=== PATIENT | male | born 1940 | race African-American/Black ===

== ENCOUNTER 2022-11-18 14:24 | Emergency (ER) | payer OTHER, MEDICAID | END 2022-11-18 17:00 | disposition home or self-care (01) | LOC: CSHERS 14:24 | DX: R60.0 Localized edema (principal); I12.9 Hypertensive chronic kidney disease with stage 1 through stage 4 chronic kidney disease, or unspecified chronic kidney disease; N18.9 Chronic kidney disease, unspecified; F17.210 Nicotine dependence, cigarettes, uncomplicated; E11.22 Type 2 diabetes mellitus with diabetic chronic kidney disease | CPT/HCPCS: 93970 ==